=== PATIENT | female | born 1940 | race Hispanic/Latino ===

== ENCOUNTER 2022-11-02 10:09 | Emergency (ER) | payer OTHER ==
[~2022-11-02] VITALS: Ht 157.5 cm; Wt 77.6 kg
[2022-11-02 10:16] VITALS: BP 151/50
[2022-11-02] MEDS ORDERED: ACET-66 PO (11:29)
[2022-11-02] MEDS ORDERED: PRED20TA3 PO (11:29)
[2022-11-02] MEDS ORDERED: LIDO1ADH82 TP (11:29)
[2022-11-02] MEDS ORDERED: KETOROLAC 15MG/ML VIAL (15MG/ML) IM ONE (11:30)
[2022-11-02] MEDS ORDERED: ACETAMINOPHEN 500 MG TABLET PO ONE (11:30)
[2022-11-02] MEDS ORDERED: PREDNISONE 20 MG TABLET PO ONE (11:30)
[2022-11-02] MEDS ORDERED: LIDOCAINE 5% TOPICAL PATCH TP ONE (11:30)
== END 2022-11-02 11:45 | disposition home or self-care (01) ==
LOC: EDH 10:09
DX: M54.32 Sciatica, left side (principal); E11.9 Type 2 diabetes mellitus without complications; I10 Essential (primary) hypertension; Z95.1 Presence of aortocoronary bypass graft
CPT/HCPCS: 99284; 96372; J1885

== ENCOUNTER 2024-04-19 17:49 | Emergency (ER) | payer OTHER ==
[~2024-04-19] VITALS: Ht 152.4 cm; Wt 71.2 kg
[~2024-04-19 17:49] MED LIST: ACET-66 PO; AMLO-257 PO; ATOR40TA71 PO; FURO20TA4 PO; LATA2.5D14 OP; LIDO1ADH82 TP; METF-444 PO; MULT-1290 PO; PRED20TA3 PO; TELM20TA8 PO
[2024-04-19 18:40] LABS: RAPID GROUP A STREP negative (NEGATIVE)
[2024-04-19 18:50] LABS: INFLUENZA TYPE A Negative For Type A (NEGATIVE); INFLUENZA TYPE B Negative For Type B (NEGATIVE)
[2024-04-19 18:52] LABS: SARS-CoV-2, RNA, NAAT POSITIVE SARS CoV-2 (NEGATIVE)
[2024-04-19 19:15] LABS: HEMATOCRIT 38.3 % (36-48); MEAN CORPUSCULAR HEMOGLOBIN 29.8 pg (27.0-33.0); MEAN CORPUSCULAR HGB CONC 32.6 g/dL (32.0-36.0); MEAN CORPUSCULAR VOLUME 91.4 fL (79-99); PLATELET COUNT (AUTO) 189 K/uL (130-400); RED BLOOD CELL COUNT(AUTO) 4.19 MIL/uL (4.00-5.50); RED CELL DISTRIBUTION WIDTH 14.9 % (11.0-15.5); WHITE BLOOD COUNT (AUTO) 9.5 K/uL (4.8-10.8)
[2024-04-19 19:21] LABS: CREATININE 0.6 mg/dL (0.5-1.0); POTASSIUM 3.8 mmol/L (3.5-5.1)
[2024-04-19 19:25] LABS: BASOPHILS # (AUTO) 0.03 K/uL (0.00-0.20); BASOPHILS % (AUTO) 0.3 % (0.0-5.0); EOSINOPHILS # (AUTO) 0.01 K/uL (0.00-0.70); EOSINOPHILS % (AUTO) 0.1 % (0.0-8.0); IMMATURE GRANULOCYTE ABSOLUTE 0.04 K/uL (0-1); LYMPHOCYTES # (AUTO) 0.9 K/uL (1.0-4.8); LYMPHOCYTES % (AUTO) 9.4 % (21.0-51.0); MONOCYTES # (AUTO) 1.3 K/uL (0.1-1.0); MONOCYTES % (AUTO) 13.6 % (3.0-13.0); NEUTROPHILS # (AUTO) 7.3 K/uL (1.8-7.7); NEUTROPHILS % (AUTO) 76.2 % (40.0-77.0)
[2024-04-19] MEDS ORDERED: MOLN200C PO (20:27)
[2024-04-19 21:52] VITALS: BP 128/72; PULSE 82; RESP 16; O2SAT 99
[2024-04-19] MEDS: ACETAMINOPHEN 325 MG TAB PO STA (22:06)
== END 2024-04-19 22:12 | disposition home or self-care (01) ==
LOC: EDH 17:49
DX: U07.1 COVID-19 (principal); I25.10 Atherosclerotic heart disease of native coronary artery without angina pectoris; E11.9 Type 2 diabetes mellitus without complications; I10 Essential (primary) hypertension; Z79.84 Long term (current) use of oral hypoglycemic drugs; Z79.899 Other long term (current) drug therapy; Z90.49 Acquired absence of other specified parts of digestive tract; Z90.710 Acquired absence of both cervix and uterus; Z95.1 Presence of aortocoronary bypass graft; Z95.810 Presence of automatic (implantable) cardiac defibrillator
CPT/HCPCS: 36415; 71045; 80048; 84484; 85025; 87635; 87804; 87880; 93005

== ENCOUNTER 2024-09-25 22:11 | Emergency (ER) | payer OTHER ==
[~2024-09-25] VITALS: Ht 157.5 cm; Wt 73.5 kg
[~2024-09-25 22:11] MED LIST changes: +MOLN200C PO
[2024-09-25 22:16] VITALS: TEMP 98.2
--- NOTE | 2024-09-25 22:49 | ERN ---
ED Note History of Present Illness Stated Complaint: C/O ABD PAIN WITH NAUSEA ONSET THIS AM Chief Complaint: Abdominal Pain Time Seen by MD: 22:23 Dictation: PATIENT IS A 84-YEAR-OLD FEMALE COMING IN TODAY WITH DIFFUSE ABDOMINAL PAIN NAUSEA VOMITING ONSET THIS MORNING. NO FEVER NO CHILLS NO CHEST PAIN NO BACK PAIN. SHE STATES SHE IS A DIABETIC, LAST BLOOD SUGAR CHECK WAS 110. DENIES ANY HISTORY OF PANCREATITIS. DOES HAVE A PACEMAKER, CAD Allergies: Coded Allergies: No Known Drug Allergies (Unverified Allergy, Unknown, 11/02/22) Home Meds Active Scripts Ondansetron (Ondansetron Odt) 4 Mg Tab.rapdis, 4 MG PO Q6HPRN PRN for nausea, #16 TAB 0 Refills Prov:KHURRAM SHEARER COOPER HELPER 09/26/24 Molnupiravir (Molnupiravir (Eua)) 200 Mg Capsule, 200 MG PO QID for 5 Days, #40 CAP Prov:ALPA HANSEN COOPER HELPER 04/19/24 Lidocaine (Lidocaine) 1 Each Adh..patch, 1 EACH TP BID, #14 ADH.PATCH Prov:SYLWIA ATKINSON 11/02/22 Acetaminophen (Tylenol) 500 Mg Tab, 500 MG PO Q4PRN PRN for PAIN, #30 TAB Prov:SYLWIA ATKINSON 11/02/22 Prednisone (Prednisone) 20 Mg Tablet, 1 TAB PO AD for 6 Days, #14 TAB 0 Refills TAKE 1 TAB BY MOUTH THREE TIMES PER DAY X3 DAYS, THEN TAKE 1 TAB BY MOUTH TWICE A DAY X2 DAYS, THEN TAKE 1 TAB BY MOUTH ONCE A DAY X1 DAY. Prov:SYLWIA ATKINSON 11/02/22 Reported Medications Multivitamin/Iron/Folic Acid (Centrum Women Tablet) 18 Mg Iron-400 Mcg Tablet, 1 EACH PO AM, TAB 10/16/23 Furosemide (Furosemide) 20 Mg Tablet, 1 TAB PO BID 10/16/23 Metformin HCl (Metformin HCl) 500 Mg Tablet, 1 TAB PO BID 10/16/23 Amlodipine Besylate (Amlodipine Besylate) 5 Mg Tablet, 1 TAB PO DAILY 10/16/23 Atorvastatin Calcium (Atorvastatin Calcium) 40 Mg Tablet, 1 TAB PO DAILY 10/16/23 Telmisartan (Telmisartan) 20 Mg Tablet, 1 TAB PO DAILY 10/16/23 Latanoprost (Latanoprost) 0.005 % Drops, 2.5 ML OP HS, DROP 10/15/23 Past Medical History Past Medical History: Diabetes-Type II, High Cholesterol, Hypertension, Other Additional Past Medical Hx: HX OF GLAUCOMA Surgical History: Pacer/AICD, Other Surgical History Other: HX OF OPEN HEART (2019) PSYCH History: no pertinent psych hx History: Not Applicable RN Note Reviewed/Agreed w/PFSH: Yes Review of System Dictation CONSTITUTIONAL: NEGATIVE EXCEPT FOR HPI HEAD/FACE: NEGATIVE EXCEPT FOR HPI EENT: NEGATIVE EXCEPT FOR HPI RESPIRATORY: NEGATIVE EXCEPT FOR HPI GASTROINTESTINAL/ABDOMINAL: NEGATIVE EXCEPT FOR HPI DIFFUSE ABDOMINAL PAIN WITH NAUSEA VOMITING GENITOURINARY: NEGATIVE EXCEPT FOR HPI MUSCULOSKELETAL: NEGATIVE EXCEPT FOR HPI INTEGUMENTARY: NEGATIVE EXCEPT FOR HPI NEUROLOGICAL/PSYCH: NEGATIVE EXCEPT FOR HPI HEMATOLOGIC/LYMPHATIC: NEGATIVE EXCEPT FOR HPI ALL SYSTEMS NEGATIVE, EXCEPT NOTED ABOVE. 13 POINT REVIEW OF SYSTEMS ASSESSED AND ALL NEGATIVE EXCEPT FOR ABOVE. Initial Vital Sign VS Vital Signs Date Time Temp Pulse Resp B/P (MAP) Pulse Ox O2 Delivery O2 Flow Rate FiO2 09/25/24 22:16 98.2 80 20 147/60 96 Room Air 09/25/24 23:45 0 21 Physical Exam Dictation VITAL SIGNS REVIEWED GENERAL APPEARANCE: ALERT, ORIENTED X 3, NO ACUTE DISTRESS, WELL DEVELOPED, NOURISHED. HEAD AND FACE: NON-TRAUMATIC. EYES: PERRL, PINK CONJUNCTIVAS, EYELID NO TRAUMA, ANTERIOR CHAMBER WITH ARCUS SENILIS. EARS: PINNAS INTACT AND NO SIGNS OF TRAUMA OR ERYTHEMA EAR CANALS CLEAR AND NO DISCHARGE TM NO ERYTHEMA NOSE: NO DISCHARGE, NO BLEEDING. OROPHARYNX: MOUTH NORMAL, TONGUE PINK, PHARYNX CLEAR,NO ERYTHEMA, TONSILS NO EXUDATES, NO ABSCESSES NOTED, MUCOUS MEMBRANE MOIST NECK: SUPPLE, NON-TENDER, NO THYROMEGALY, NO MASSES, NO JVD, NO BRUITS BREAST:DEFERRED CHEST:NO TENDERNESS, NO CREPITUS, NO PARADOXICAL MOVEMENT, NO RETRACTIONS LUNGS:CLEAR, WELL-VENTILATED, SYMMETRIC, NO RALES, NO WHEEZING, NO RHONCHI, NO STRIDOR, GOOD BREATH SOUNDS BILATERALLY HEART: REGULAR RATE, REGULAR RHYTHM, NO MURMUR, NO GALLOPS VASCULAR: NO PERIPHERAL EDEMA, ABDOMEN: SOFT, POSITIVE BOWEL SOUNDS, NONDISTENDED, NO GUARDING, DIFFUSE ABDOMINAL TENDERNESS.. RECTAL: DEFERRED GENITAL: DEFERRED NEUROLOGICAL: NORMAL SPEECH, MOTOR FUNCTION INTACT, SENSORY FUNCTION INTACT MUSCULOSKELETAL: NECK NONTENDER, FULL RANGE OF MOTION, BACK NONTENDER, FULL RANGE OF MOTION, EXTREMITIES: NONTENDER, FULL RANGE OF MOTION SKIN: COLOR PINK, DRY, NO TURGOR, NO RASH, NO LACERATIONS, NO ABRASIONS, NO CONTUSIONS. LYMPHATIC: DEFERRED Results (Laboratory/Radiology) Laboratory/Radiology Laboratory Tests Test 09/25/24 22:57 09/25/24 23:45 White Blood Count 8.2 K/uL (4.8-10.8) Red Blood Count 3.94 MIL/uL (4.00-5.50) L Hemoglobin 11.8 g/dL (12.0-16.0) L Hematocrit 35.6 % (36-48) L Mean Corpuscular Volume 90.4 fL (79-99) Mean Corpuscular Hemoglobin 29.9 pg (27.0-33.0) Mean Corpuscular Hemoglobin Concent 33.1 g/dL (32.0-36.0) Red Cell Distribution Width 14.7 % (11.0-15.5) Platelet Count 179 K/uL (130-400) Mean Platelet Volume 10.5 fL (7.5-10.5) Immature Granulocyte % (Auto) 0.2 % (0-1) Neutrophils (%) (Auto) 74.6 % (40.0-77.0) Lymphocytes (%) (Auto) 11.5 % (21.0-51.0) L Monocytes (%) (Auto) 11.8 % (3.0-13.0) Eosinophils (%) (Auto) 1.5 % (0.0-8.0) Basophils (%) (Auto) 0.4 % (0.0-5.0) Neutrophils # (Auto) 6.1 K/uL (1.8-7.7) Lymphocytes # (Auto) 0.9 K/uL (1.0-4.8) L Monocytes # (Auto) 1.0 K/uL (0.1-1.0) Eosinophils # (Auto) 0.12 K/uL (0.00-0.70) Basophils # (Auto) 0.03 K/uL (0.00-0.20) Absolute Immature Granulocyte (auto 0.02 K/uL (0-1) Nucleated Red Blood Cells 0.0 % (0.0-0.19) Sodium Level 138 mmol/L (136-145) Potassium Level 3.7 mmol/L (3.5-5.1) Chloride Level 103 mmol/L (101-111) Carbon Dioxide Level 31 mmol/L (21-32) Blood Urea Nitrogen 12 mg/dL (7-18) Creatinine 0.6 mg/dL (0.5-1.0) Glomerular Filtration Rate Calc 87 mL/min (>90) Random Glucose 97 mg/dL (70-105) Total Calcium 9.0 mg/dL (8.5-10.1) Troponin I High Sensitivity 19 ng/L (4-50) Lipase 27 U/L (16-77) Urine Color LIGHT-YELLOW (YELLOW) Urine Appearance SLIGHTLY CLOUDY (CLEAR) Urine pH 5.5 (5.0-8.0) Urine Specific [place] 1.015 (1.001-1.031) Urine Protein NEGATIVE mg/dL (NEGATIVE) Urine Glucose (UA) NEGATIVE mg/dL (NEGATIVE) Urine Ketones NEGATIVE mg/dL (NEGATIVE) Urine Occult Blood NEGATIVE (NEGATIVE) Urine Nitrate NEGATIVE (NEGATIVE) Urine Bilirubin NEGATIVE mg/dL (NEGATIVE) Urine Urobilinogen 0.2 mg/dL (0.2-1.0) Urine Leukocyte Esterase NEGATIVE [place]/uL Urine RBC 0-1 /HPF (0-1) Urine WBC 2-5 /HPF (0-1) H Urine Squamous Epithelial Cells FEW /HPF (0-2) Urine Bacteria None /HPF (None Seen) Labs Reviewed?: Yes ED Course ED Course Orders Procedure Category Date Status Time Cbc With Differential LAB 09/25/24 Complete 22: Urinalysis Profile LAB 09/25/24 Complete 22:23 0.9%Nacl 1000ml (Ns PHA 09/25/24 Complete 1000ml) 22:30 Morphine 2mg Syg PHA 09/25/24 Complete (Morphine 2mg Syg) 22:30 Ondansetron 4mg Inj PHA 09/25/24 Complete (Zofran 4mg Inj) 22:30 Lipase LAB 09/25/24 Complete 22:23 Basic Metabolic Panel LAB 09/25/24 Complete 22:23 12 Lead Ekg Tracing- EKG 09/25/24 Complete Technical 22:47 Troponin I High LAB 09/25/24 Complete Sensitivity 22:47 Current Medications Medications (Trade) Dose Ordered Sig/Khadijah Route PRN Reason Start Time Stop Time Status Last Admin Dose Admin Morphine Sulfate (morPHINE 2MG SYG) 2 mg ONCE ONCE IVP 09/25/24 22:30 09/25/24 22:31 DC 09/25/24 23:13 Ondansetron HCl (zoFRAN 4MG INJ) 4 mg ONCE ONCE IVP 09/25/24 22:30 09/25/24 22:31 DC 09/25/24 23:13 Sodium Chloride 1,000 ml @ 0 mls/hr ONCE ONCE IV 09/25/24 22:30 09/25/24 22:31 DC 09/25/24 23:13 Vital Signs Date Time Temp Pulse Resp B/P (MAP) Pulse Ox O2 Delivery O2 Flow Rate FiO2 09/26/24 01:00 70 17 139/56 96 Room Air* 0 21 09/25/24 23:45 81 17 163/57 96 Room Air* 0 21 09/25/24 22:16 98.2 80 20 147/60 96 Room Air 0055, PATIENT NO LONGER VOMITING WE WILL BE DISCHARGED HOME WITH NORMAL LABS WITH ZOFRAN AND CLEAR LIQUID DIET UNTIL TOMORROW EVENING AND THEN START REGULAR DIET Medical Decision Making MDM MDM: DIFFERENTIAL DIAGNOSIS: PANCREAS LIGHT/GASTRITIS/GASTROENTERITIS/DEHYDRATION/ELECTROLYTE IMBALANCE RATIONALE: TESTS CONSIDERED AND ORDERED SECONDARY TO SHARED DECISION MAKING INCLUDE: UA/LABS PREVIOUS OUTSIDE RECORDS REVIEWED: OLD ER VISITS. REVIEWED RISK OF COMPLICATION AND/OR MORBIDITY OR MORTALITY OF PATIENT MANAGEMENT: NONE MEDICATIONS-PER MEDICATION RECONCILIATION NEED FOR HOSPITALIZATION: PATIENT DOES NOT MEET CRITERIA FOR HOSPITALIZATION. NO NEED FOR EMERGENCY MAJOR/MINOR SURGERY: NO THERE ARE NO SOCIAL CONCERNS WITH THIS PATIENT. PRESCRIPTION DRUG MANAGEMENT ZOFRAN PRESCRIPTIONS WILL INCLUDE SYMPTOMATIC CARE PATIENT'S PRIOR EXTERNAL MEDICAL RECORDS FROM OTHER ER VISITS WERE REVIEWED BY ME INDICATED. PRIOR TESTING AND RESULTS FROM PREVIOUS VISITS WERE REVIEWED. PRIOR TESTS WERE TAKEN INTO ACCOUNT WITH MEDICAL DECISION MAKING AND RESOURCE UTILIZATION, INDEPENDENT HISTORIAN/HISTORIANS WERE USED TO OBTAIN COMPLETE MEDICAL HISTORY. I INDEPENDENTLY INTERPRETED THE TEST THAT WERE PERFORMED, RESULTS WERE REVIEWED BY ME AND CONSIDERED FINDINGS ON RADIOLOGY IF ORDERED. MEDICAL MANAGEMENT AND EXAMINATION INTERPRETATION DISCUSSIONS WERE HAD BY ME WITH OTHER QUALIFIED HEALTHCARE PROFESSIONALS INDICATED FOR THE PATIENT'S C ARE. DX & DISP Disposition: Discharge Departure Impression: Primary Impression: Nausea & vomiting Condition: Stable Scripts Ondansetron (Ondansetron Odt) 4 Mg Tab.rapdis 4 MG PO Q6HPRN PRN for nausea, #16 TAB 0 Refills Prov: KHURRAM SHEARER NP 09/26/24 Additional Instructions: FOLLOW-UP WITH PRIMARY CARE PROVIDER IN 1 TO 2 DAYS. TAKE MEDICATIONS DIRECTED HERE IN THE EMERGENCY ROOM. OKAY TO CONTINUE HOME MEDICATIONS UNLESS OTHERWISE DISCUSSED DURING YOUR VISIT IN THE EMERGENCY ROOM TODAY. RETURN TO YOUR NEAREST EMERGENCY ROOM IF SYMPTOMS WORSEN OR IF THERE IS NO IMPROVEMENT. CALL 911 IF YOU NEED IMMEDIATE ASSISTANCE. TAKE TYLENOL OR MOTRIN [id number] NEEDED AND IF NO CONTRAINDICATIONS ARE PRESENT. INCREASE OR AL HYDRATION. A WOUND CULTURE OR URINE CULTURE WAS ORDERED HERE IN THE EMERGENCY ROOM DEPARTMENT PLEASE FOLLOW-UP WITH PRIMARY CARE PROVIDER AND ADVISE THEM TO GET REPEAT PORTS FROM OUR FACILITY. IF YOU HAD ANY BRIDGET WRAP/SPLINTS THAT WERE APPLIED HERE, PLEASE DO NOT REMOVE THEM UNTIL YOU SEE YOUR PRIMARY CARE OR SPECIALTY. CLEAR LIQUID DIET UNTIL TOMORROW AFTERNOON AND THEN ADVANCE DIET SLOWLY IN TOLERATED. FOLLOW UP WITH YOUR PRIMARY CARE DOCTOR IN 1-2 DAYS Referrals: JAZMYNE PATEL M.D. (PCP) Time of Disposition: 00:57 I have reviewed the case, and I agree with, Diagnosis and Plan KHURRAM SHEARER NP Sep 25, 2024 22:49 LIAM HERNANDEZ DO Sep 26, 2024 02:23
[2024-09-25 23:03] LABS: BASOPHILS # (AUTO) 0.03 K/uL (0.00-0.20); BASOPHILS % (AUTO) 0.4 % (0.0-5.0); EOSINOPHILS # (AUTO) 0.12 K/uL (0.00-0.70); EOSINOPHILS % (AUTO) 1.5 % (0.0-8.0); HEMATOCRIT 35.6 % (36-48); IMMATURE GRANULOCYTE ABSOLUTE 0.02 K/uL (0-1); LYMPHOCYTES # (AUTO) 0.9 K/uL (1.0-4.8); LYMPHOCYTES % (AUTO) 11.5 % (21.0-51.0); MEAN CORPUSCULAR HEMOGLOBIN 29.9 pg (27.0-33.0); MEAN CORPUSCULAR HGB CONC 33.1 g/dL (32.0-36.0); MEAN CORPUSCULAR VOLUME 90.4 fL (79-99); MONOCYTES % (AUTO) 11.8 % (3.0-13.0); NEUTROPHILS # (AUTO) 6.1 K/uL (1.8-7.7); NEUTROPHILS % (AUTO) 74.6 % (40.0-77.0); PLATELET COUNT (AUTO) 179 K/uL (130-400); RED BLOOD CELL COUNT(AUTO) 3.94 MIL/uL (4.00-5.50); RED CELL DISTRIBUTION WIDTH 14.7 % (11.0-15.5); WHITE BLOOD COUNT (AUTO) 8.2 K/uL (4.8-10.8)
[2024-09-25] MEDS: morPHINE 2 MG SYG IVP ONE (23:13)
[2024-09-25] MEDS: 0.9%NACL 1000ML 1,000 ML IV ONE (23:13)
[2024-09-25] MEDS: ondanSETRON 4MG INJ IVP ONE (23:13)
[2024-09-25 23:14] LABS: CREATININE 0.6 mg/dL (0.5-1.0); POTASSIUM 3.7 mmol/L (3.5-5.1)
--- NOTE | 2024-09-25 23:45 | EKG ---
[facility] Test Date: 2024-09-25 Test Time: 23:44:13 Pat Name: MAKENNA ROMERO Department[facility] Room: Gender: F Director [employer]: [id number] [phone] [id number] Requested By: KHURRAM SHEARER Order Number: [id number] Reading MD: Nicolás Villagran Measurements Intervals [place] Rate: 78 P: 62 [place]: 191 QRS: -32 QRSD: 181 T: 118 QT: 397 QTc: 452 Interpretive Statements Sinus rhythm Left bundle branch block Consider anterolateral infarct Compared to ECG 04/19/2024 20:46:40 Left bundle-branch block now present Myocardial infarct finding now present Ventricular-paced complex(es) or rhythm no longer present Atrial-sensed ventricular-paced complex(es) or rhythm no longer present Electronically Signed On 09-26-2024 17:25:42 WAITER/WAITRESS BUFFET by Nicolás Villagran Please click the below link to view image of tracing.
[2024-09-26 00:08] LABS: BILIRUBIN,URINE NEGATIVE (NEGATIVE); COLOR,URINE LIGHT-YELLOW (YELLOW); GLUCOSE, URINE (UA) NEGATIVE (NEGATIVE); KETONES,URINE NEGATIVE (NEGATIVE); LEUKOCYTE ESTERASE ,URINE NEGATIVE Leu/uL (NEGATIVE); NITRATE,URINE NEGATIVE (NEGATIVE); OCCULT BLOOD,URINE NEGATIVE (NEGATIVE); PH,URINE 5.5 (5.0-8.0); PROTEIN,URINE NEGATIVE (NEGATIVE); UROBILINOGEN,URINE 0.2 mg/dL (0.2-1.0)
[2024-09-26 00:12] LABS: ADD UA MICROSCOPIC YES; APPEARANCE,URINE SLIGHTLY CLOUDY (CLEAR)
[2024-09-26 00:18] LABS: MUCUS,URINE RARE LPF (None Seen); RBC,URINE 0-1 /HPF (0-1); SQUAMOUS EPITHELIAL CELL,UR FEW /HPF (0-2)
[2024-09-26] MEDS ORDERED: ONDA-243 PO (00:58)
[2024-09-26 01:00] VITALS: BP 139/56; PULSE 70; RESP 17; O2SAT 96
== END 2024-09-26 01:46 | disposition home or self-care (01) ==
LOC: EDH 22:11
DX: R11.2 Nausea with vomiting, unspecified (principal); E11.9 Type 2 diabetes mellitus without complications; E78.00 Pure hypercholesterolemia, unspecified; I10 Essential (primary) hypertension; Z79.84 Long term (current) use of oral hypoglycemic drugs; Z79.899 Other long term (current) drug therapy; Z95.810 Presence of automatic (implantable) cardiac defibrillator
CPT/HCPCS: 99284; 96374; 96361; 96375; 84484; 80048; 83690; 85025; 81001; 36415; 93005; J2270; J7030; J2405